=== PATIENT | female | born 1985 | race Caucasian/White ===

== ENCOUNTER 2018-11-13 14:15 | Emergency (ER) | payer SELFPAY ==
[2018-11-13] MEDS ORDERED: Tetracaine HCl/PF 0.5% 4 ML Bottle EYEBOTH STA (14:23)
--- NOTE | 2018-11-13 14:24 | EDM.PDOC ---
ED HPI GENERAL MEDICAL PROBLEM - General Chief Complaint: Eye Problems Stated Complaint: SOMETHING IN EYE Time Seen by Provider: 11/13/18 14:23 Source of Information: Reports: Patient History Limitations: Reports: No Limitations - History of Present Illness INITIAL COMMENTS - FREE TEXT/NARRATIVE: HISTORY AND PHYSICAL: History of present illness: Patient is a 33-year-old female who presents to the emergency room today with complaints of pain and sensation of foreign body in the left eye. She states yesterday she was gardening when she felt something hit her eye. Shortly after she began to have irritation and unable to irrigate the eye herself. She does not wear glasses or corrective lenses. Patient denies any fever, chills, headache, syncope or near syncope. Denies any chest pain, back pain, shortness of breath or cough. Denies any abdominal pain, nausea, vomiting, diarrhea, constipation or dysuria. Has not noted any blood in urine or stool. Patient has been eating and drinking appropriately. Review of systems: As per history of present illness and below otherwise all systems reviewed and negative. Past medical history: As per history of present illness and as reviewed below otherwise noncontributory. Surgical history: As per history of present illness and as reviewed below otherwise noncontributory. Social history: See social history for further information Family history: As per history of present illness and as reviewed below otherwise noncontributory. Physical exam: General: Well developed and well-nourished 33-year-old female. Alert and oriented. Nontoxic appearing and in no acute distress. HEENT: Atraumatic, normocephalic, pupils equal and reactive bilaterally, negative for conjunctival pallor or scleral icterus, mucous membranes moist, TMs normal bilaterally, throat clear, neck supple, nontender, trachea midline. No drooling or trismus noted. No meningeal signs. No hot potato voice noted. Lungs: Clear to auscultation, breath sounds equal bilaterally, chest nontender. Heart: S1S2, regular rate and rhythm without overt murmur Abdomen: Soft, nondistended, nontender. Negative for masses or hepatosplenomegaly. Negative for costovertebral tenderness. Pelvis: Stable nontender. Genitourinary: Deferred. Rectal: Deferred. Skin: Intact, warm, dry. No lesions or rashes noted. Extremities: Atraumatic, moves all extremities per self with difficulty or deficits, negative for cords or calf pain. Neurovascular unremarkable. Neuro: Awake, alert, oriented. Cranial nerves II through XII unremarkable. Cerebellum unremarkable. Motor and sensory unremarkable throughout. Exam nonfocal. Notes: Eye exam was completed. She does have a corneal abrasion noted at the 5 to 6 o' clock position below the iris. No foreign body noted. We'll give her erythromycin ointment. Supportive care measures were reviewed and discussed. Voices understanding and is agreeable to plan of care. Denies any further questions or concerns at this time. Diagnostics: None Therapeutics: Tetracaine Prescription: Erythromycin Ointment Impression: Corneal Abrasion, left Plan: 1. Take the antibiotic ointment as prescribed. 2. Follow-up with ophthalmology as we discussed. Return to the ED as needed and as discussed. Definitive disposition and diagnosis as appropriate pending reevaluation and review of above. Left Eye Pain Score (Numeric/FACES): 6 - Related Data Allergies Allergy/AdvReac Type Severity Reaction Status Date / Time naproxen Allergy Itching Verified 11/13/18 14:43 Home Meds: Home Meds . [No Known Home Meds] 11/24/15 [History] Past Medical History Genitourinary History: Reports: Pyelonephritis, UTI, Recurrent - Infectious Disease History Infectious Disease History: Reports: Chicken Pox - Past Surgical History GI Surgical History: Reports: Appendectomy Musculoskeletal Surgical History: Reports: Other (See Below) Other Musculoskeletal Surgeries/Procedures:: Bilateral Knee scopes Social & Family History - Family History Family Medical History: Noncontributory - Caffeine Use Caffeine Use: Reports: Tea ED ROS GENERAL - Review of Systems Review Of Systems: ROS reveals no pertinent complaints other than HPI. ED EXAM GENERAL W FULL EYE - Physical Exam Exam: See Below (See dictation) Course - Vital Signs Last Recorded V/S: Last Vital Signs Temp 97.4 F 11/13/18 14:43 Pulse 92 11/13/18 14:43 Resp 14 11/13/18 14:43 BP 121/85 11/13/18 14:43 Pulse Ox 96 11/13/18 14:43 - Orders/Labs/Meds Meds: Medications Discontinued Medications Generic Name Dose Route Start Last Admin Trade Name Freq PRN Reason Stop Dose Admin Tetracaine HCl 1 ml 11/13/18 14:23 11/13/18 14:54 Tetracaine 0.5% Steri-Unit Hanny EYEBOTH 11/13/18 14:24 2 drop NOW STA Administration Departure - Departure Time of Disposition: 14:57 Disposition: Home, Self-Care 01 Clinical Impression: Corneal abrasion Qualifiers: Encounter type: initial encounter Laterality: left Qualified Code(s): S05.02XA - Injury of conjunctiva and corneal abrasion without foreign body, left eye, initial encounter - Discharge Information Instructions: Corneal Abrasion, [id number] Referrals: PCP,Unknown [Primary Care Provider] - Forms: ED Department Discharge Additional Instructions: The following information is given to patients seen in the emergency department who are being discharged to home. This information is to outline your options for follow-up care. We provide all patients seen in our emergency department with a follow-up referral. The need for follow-up, as well as the timing and circumstances, are variable depending upon the specifics of your emergency department visit. If you don't have a primary care physician on staff, we will provide you with a referral. We always advise you to contact your personal physician following an emergency department visit to inform them of the circumstance of the visit and for follow-up with them and/or the need for any referrals to a consulting specialist. The emergency department will also refer you to a specialist when appropriate. This referral assures that you have the opportunity for follow-up care with a specialist. All of these measure are taken in an effort to provide you with optimal care, which includes your follow-up. Under all circumstances we always encourage you to contact your private physician who remains a resource for coordinating your care. When calling for follow-up care, please make the office aware that this follow-up is from your recent emergency room visit. If for any reason you are refused follow-up, please contact the [facility] Emergency Department at and asked to speak to the emergency department charge nurse. [facility] [address] [place] [id number] [facility] [address] [place] [id number] 1. Take the antibiotic ointment as prescribed. 2. Follow-up with ophthalmology as we discussed. Return to the ED as needed and as discussed.
[2018-11-13 14:50] VITALS: BP 121/85
== END 2018-11-13 15:03 | disposition home or self-care (01) ==
LOC: MW.ED 14:15
DX: S05.02XA Injury of conjunctiva and corneal abrasion without foreign body, left eye, initial encounter (principal); X58.XXXA Exposure to other specified factors, initial encounter; Z88.8 Allergy status to other drugs, medicaments and biological substances
CPT/HCPCS: 99282; 99283

== ENCOUNTER 2018-11-22 11:46 | Emergency (ER) | payer SELFPAY ==
[2018-11-22] MEDS ORDERED: Sodium Chloride 0.9% 1,000 ML IV ONE (11:52)
[2018-11-22] MEDS ORDERED: Ondansetron 4 MG/2 ML SDV IVPUSH ONE (11:52)
[2018-11-22 12:05] VITALS: BP 150/108
[2018-11-22] MEDS ORDERED: Morphine 2 MG/ML Syringe IVPUSH ONE ×2 (12:06→15:31)
[2018-11-22] MEDS ORDERED: Morphine 2 MG/ML Syringe ONE (12:08)
[2018-11-22 12:47] LABS: CHLORIDE,CL 104 mmol/L (98-107); SODIUM,NA 142 mmol/L (136-145)
[2018-11-22] MEDS ORDERED: Ketorolac 30 MG/ML SDV IVPUSH ONE (13:00)
--- NOTE | 2018-11-22 13:22 | CT ---
INDICATION: Right-sided flank pain. TECHNIQUE: CT abdomen and pelvis without contrast. COMPARISON: None. FINDINGS: Lower chest: Unremarkable. Liver: Normal in size and attenuation. No masses. Gallbladder and bile ducts: No stones or inflammation. No biliary dilatation. Pancreas: Unremarkable. No mass or inflammation. Spleen: Normal in size. No masses. Adrenal glands: Normal in size. No nodules. Kidneys: A 3 mm stone in the proximal right ureter is causing mild hydronephrosis. No other renal stones. GI tract: Unremarkable. Normal in caliber. No sign of mass or inflammation. Vasculature: Unremarkable. Lymph nodes: No lymphadenopathy. Abdominal wall/Omentum/Peritoneum: Unremarkable. No sign of mass or infiltration. No free air or significant free fluid. Pelvis: A complex cystic mass with septations in the right adnexa measures 7 x 5 x 4 cm. Suspected pedunculated fibroid is emanating from the anterior border of the uterus. Remainder of the pelvis is unremarkable. Bones: Unremarkable for age. IMPRESSION: 1. 3 mm stone in the proximal right ureter is causing mild hydronephrosis. 2. Complex cystic mass in the right adnexa measures approximately 7 x 5 x 4 cm. Ultrasound evaluation is recommended to assess for a mural nodule and potential neoplasm. Gynecology consultation is also recommended for management of this finding. 3. Small uterine fibroid is suspected. Please note that all CT scans at this facility use dose modulation, iterative reconstruction, and/or weight-based dosing when appropriate to reduce radiation dose to as low as reasonably achievable. Dictated by Brayan Schmid MD @ Nov 22 2018 1:10PM Signed by Dr. Brayan Schmid @ Nov 22 2018 1:19PM
[2018-11-22] MEDS ORDERED: Tamsulosin 0.4 MG Cap.ER PO ONE (13:23)
[2018-11-22] MEDS ORDERED: methylPREDNISolone Sodium Succinate 125 MG/2 ML SDV IVPUSH ONE (13:23)
--- NOTE | 2018-11-22 15:04 | US ---
INDICATION: Right adnexal cyst seen on CT; further assessment. COMPARISON: CT abdomen and pelvis November 22, 2018. TECHNIQUE: Pelvic ultrasound; transabdominal and transvaginal pelvic ultrasound. FINDINGS: The uterus is measuring 6.3 x 2.6 x 4.1 cm. The endometrial stripe is measuring 9.5 mm in thickness with homogeneous echotexture. The right ovary is measuring 4.8 x 4 x 6.3 cm. The left ovary is measuring 1.4 x 1.2 x 1.3 cm. A 3 x 2.7 cm cyst in the right ovary and a 3.3 x 2.9 cm cyst in the right ovary both adjacent to each other. No mural nodules. No evidence of free fluid in the cul-de-sac. Normal blood flow to the ovaries. A 19 millimeter uterine fibroid. IMPRESSION: 1. Enlarged right ovary with 2 cysts in it; followup is needed. 2. No free fluid in the cul-de-sac. 3. A 19 mm fibroid. Dictated by Clara Balderrama MD @ Nov 22 2018 2:47PM Signed by Dr. Clara Balderrama @ Nov 22 2018 3:01PM
--- NOTE | 2018-11-22 15:36 | EDM.PDOC ---
ED HPI GENERAL MEDICAL PROBLEM - General Chief Complaint: Flank Pain Stated Complaint: KIDNEY STONE Time Seen by Provider: 11/22/18 15:31 Source of Information: Reports: Patient - History of Present Illness INITIAL COMMENTS - FREE TEXT/NARRATIVE: HISTORY AND PHYSICAL: History of present illness: [Patient presents with right-sided abdominal pain she rates a 20 out of 10 with intermittent nausea no vomiting chills sweats no fever She has a history of renal stone she also states she has had a known history of cysts in her right ovary and has been considered for nephrectomy in the past but has not elected to have this performed . No chest pain shortness breath headache dizziness palpitation no bowel or urine symptoms Review of systems: As per history of present illness and below otherwise all systems reviewed and negative. Past medical history: As per history of present illness and as reviewed below otherwise noncontributory. Surgical history: As per history of present illness and as reviewed below otherwise noncontributory. Social history: No reported history of drug or alcohol abuse. Family history: As per history of present illness and as reviewed below otherwise noncontributory. Physical exam: HEENT: Atraumatic, normocephalic, pupils reactive, negative for conjunctival pallor or scleral icterus, mucous membranes moist, throat clear, neck supple, nontender, trachea midline. Lungs: Clear to auscultation, breath sounds equal bilaterally, chest nontender. Heart: S1S2, regular, negative for clicks, rubs, or JVD. Abdomen: Soft, nondistended, nontender. Negative for masses or hepatosplenomegaly. Negative for costovertebral tenderness. Pelvis: Stable nontender. Genitourinary: Deferred. Rectal: Deferred. Extremities: Atraumatic, negative for cords or calf pain. Neurovascular unremarkable. Neuro: Awake, alert, oriented. Cranial nerves II through XII unremarkable. Cerebellum unremarkable. Motor and sensory unremarkable throughout. Exam nonfocal. Diagnostics: [CBC CMP UA hCG CT abdomen pelvis no contrast Pelvic ultrasound limited ] Therapeutics: [ morphine 2 mg IV 2 Toradol 30 mg IV Flomax Zofran [place] Flomax Zofran Follow-up primary care Follow-up gynecology ] Impression: [ 3 millimeter right ureteral stone ] right ovarian cysts -confirmed Definitive disposition and diagnosis as appropriate pending reevaluation and review of above. Right Flank Pain Score (Numeric/FACES): 10 - Related Data Allergies Allergy/AdvReac Type Severity Reaction Status Date / Time naproxen Allergy Itching Verified 11/22/18 11:58 Home Meds: Home Meds . [No Known Home Meds] 11/24/15 [History] Past Medical History - Past Health History Medical/Surgical History: Denies Medical/Surgical History Genitourinary History: Reports: Pyelonephritis, UTI, Recurrent - Infectious Disease History Infectious Disease History: Reports: Chicken Pox - Past Surgical History GI Surgical History: Reports: Appendectomy Musculoskeletal Surgical History: Reports: Other (See Below) Other Musculoskeletal Surgeries/Procedures:: Bilateral Knee scopes Social & Family History - Family History Family Medical History: Noncontributory - Tobacco Use Smoking Status *Q: Never Smoker Second Hand Smoke Exposure: No - Caffeine Use Caffeine Use: Reports: None - Recreational Drug Use Recreational Drug Use: No ED ROS GENERAL - Review of Systems Review Of Systems: See Below ED EXAM, GENERAL - Physical Exam Exam: See Below Course - Vital Signs Last Recorded V/S: Last Vital Signs Temp 96.7 F 11/22/18 12:01 Pulse 87 11/22/18 12:01 Resp 20 11/22/18 12:01 BP 150/108 H 11/22/18 12:01 Pulse Ox 100 11/22/18 12:01 - Orders/Labs/Meds Orders: Active Orders 24 hr Category Date Time Status Morphine Med 11/22/18 15:31 Once 2 mg IVPUSH ONETIME ONE Labs: Laboratory Tests 11/22/18 11/22/18 11/22/18 Range/Units 11:58 11:58 12:55 WBC 20.76 H (4.0-11.0) K/uL RBC 4.69 (4.30-5.90) M/uL Hgb 14.5 (12.0-16.0) g/dL Hct 41.4 (36.0-46.0) % MCV 88.3 (80.0-98.0) fL MCH 30.9 (27.0-32.0) pg MCHC 35.0 (31.0-37.0) g/dL RDW Std Deviation 39.7 (28.0-62.0) fl RDW Coeff of Jamir 12 (11.0-15.0) % Plt Count 382 (150-400) K/uL MPV 8.60 (7.40-12.00) fL Neut % (Auto) 72.9 (48.0-80.0) % Lymph % (Auto) 19.2 (16.0-40.0) % Walker % (Auto) 7.5 (0.0-15.0) % Eos % (Auto) 0.3 (0.0-7.0) % Baso % (Auto) 0.1 (0.0-1.5) % Neut # (Auto) 15.1 H (1.4-5.7) K/uL Lymph # (Auto) 4.0 H (0.6-2.4) K/uL Walker # (Auto) 1.6 H (0.0-0.8) K/uL Eos # (Auto) 0.1 (0.0-0.7) K/uL Baso # (Auto) 0.0 (0.0-0.1) K/uL Nucleated RBC % 0.0 /100WBC Nucleated RBCs # 0 K/uL Sodium 142 (136-145) mmol/L Potassium 3.2 L (3.5-5.1) mmol/L Chloride 104 (98-107) mmol/L Carbon Dioxide 20.1 L (21.0-32.0) mmol/L BUN 13 (7.0-18.0) mg/dL Creatinine 0.9 (0.6-1.0) mg/dL Est Cr Clr Drug Dosing 74.23 mL/min Estimated GFR (MDRD) > 60.0 ml/min Glucose 137 H (74-106) mg/dL Calcium 9.1 (8.5-10.1) mg/dL Total Bilirubin 0.6 (0.2-1.0) mg/dL AST 10 L (15-37) IU/L ALT 22 (14-63) IU/L Alkaline Phosphatase 41 L (46-116) U/L Total Protein 8.0 (6.4-8.2) g/dL Albumin 4.2 (3.4-5.0) g/dL Globulin 3.8 (2.6-4.0) g/dL Albumin/Globulin Ratio 1.1 (0.9-1.6) Urine Color YELLOW Urine Appearance CLEAR Urine pH 6.0 (5.0-8.0) Ur Specific [place] 1.010 (1.001-1.035) Urine Protein NEGATIVE (NEGATIVE) mg/dL Urine Glucose (UA) NEGATIVE (NEGATIVE) mg/dL Urine Ketones 15 H (NEGATIVE) mg/dL Urine Occult Blood LARGE H (NEGATIVE) Urine Nitrite NEGATIVE (NEGATIVE) Urine Bilirubin NEGATIVE (NEGATIVE) Urine Urobilinogen 0.2 (<2.0) EU/dL Ur Leukocyte Esterase NEGATIVE (NEGATIVE) Urine RBC 2-3 (0-2/HPF) Urine WBC 0-1 (0-5/HPF) Ur Epithelial Cells RARE (NONE-FEW) Urine Bacteria RARE (NEGATIVE) Urine HCG, Qual (NEGATIVE) 11/22/18 Range/Units 12:55 WBC (4.0-11.0) K/uL RBC (4.30-5.90) M/uL Hgb (12.0-16.0) g/dL Hct (36.0-46.0) % MCV (80.0-98.0) fL MCH (27.0-32.0) pg MCHC (31.0-37.0) g/dL RDW Std Deviation (28.0-62.0) fl RDW Coeff of Jamir (11.0-15.0) % Plt Count (150-400) K/uL MPV (7.40-12.00) fL Neut % (Auto) (48.0-80.0) % Lymph % (Auto) (16.0-40.0) % Walker % (Auto) (0.0-15.0) % Eos % (Auto) (0.0-7.0) % Baso % (Auto) (0.0-1.5) % Neut # (Auto) (1.4-5.7) K/uL Lymph # (Auto) (0.6-2.4) K/uL Walker # (Auto) (0.0-0.8) K/uL Eos # (Auto) (0.0-0.7) K/uL Baso # (Auto) (0.0-0.1) K/uL Nucleated RBC % /100WBC Nucleated RBCs # K/uL Sodium (136-145) mmol/L Potassium (3.5-5.1) mmol/L Chloride (98-107) mmol/L Carbon Dioxide (21.0-32.0) mmol/L BUN (7.0-18.0) mg/dL Creatinine (0.6-1.0) mg/dL Est Cr Clr Drug Dosing mL/min Estimated GFR (MDRD) ml/min Glucose (74-106) mg/dL Calcium (8.5-10.1) mg/dL Total Bilirubin (0.2-1.0) mg/dL AST (15-37) IU/L ALT (14-63) IU/L Alkaline Phosphatase (46-116) U/L Total Protein (6.4-8.2) g/dL Albumin (3.4-5.0) g/dL Globulin (2.6-4.0) g/dL Albumin/Globulin Ratio (0.9-1.6) Urine Color Urine Appearance Urine pH (5.0-8.0) Ur Specific [place] (1.001-1.035) Urine Protein (NEGATIVE) mg/dL Urine Glucose (UA) (NEGATIVE) mg/dL Urine Ketones (NEGATIVE) mg/dL Urine Occult Blood (NEGATIVE) Urine Nitrite (NEGATIVE) Urine Bilirubin (NEGATIVE) Urine Urobilinogen (<2.0) EU/dL Ur Leukocyte Esterase (NEGATIVE) Urine RBC (0-2/HPF) Urine WBC (0-5/HPF) Ur Epithelial Cells (NONE-FEW) Urine Bacteria (NEGATIVE) Urine HCG, Qual NEGATIVE (NEGATIVE) Meds: Medications Discontinued Medications Generic Name Dose Route Start Last Admin Trade Name Freq PRN Reason Stop Dose Admin Sodium Chloride 1,000 mls @ 999 mls/hr 11/22/18 11:52 11/22/18 12:11 Normal Saline IV 11/22/18 12:52 999 mls/hr STAT ONE Administration Ketorolac Tromethamine 30 mg 11/22/18 13:00 11/22/18 13:04 Toradol IVPUSH 11/22/18 13:01 30 mg ONETIME ONE Administration Methylprednisolone Sodium Succinate 125 mg 11/22/18 13:23 11/22/18 13:41 Solu-Medrol IVPUSH 11/22/18 13:24 125 mg ONETIME ONE Administration Morphine Sulfate 2 mg 11/22/18 12:06 11/22/18 12:13 Morphine IVPUSH 11/22/18 12:07 2 mg ONETIME ONE Administration Morphine Sulfate Confirm 11/22/18 12:08 11/22/18 12:15 Morphine Administered 11/22/18 12:09 Not Given Dose 2 mg .ROUTE .STK-MED ONE Ondansetron HCl 8 mg 11/22/18 11:52 11/22/18 12:11 Zofran IVPUSH 11/22/18 11:53 8 mg ONETIME ONE Administration Tamsulosin HCl 0.4 mg 11/22/18 13:23 11/22/18 13:40 Flomax PO 11/22/18 13:24 0.4 mg ONETIME ONE Administration Departure - Departure Time of Disposition: 15:34 Disposition: Home, Self-Care 01 Condition: Good Clinical Impression: Ureteral stone - Discharge Information Referrals: PCP,Unknown [Primary Care Provider] - Additional Instructions: Medication as prescribed Return if symptoms persist or worsen or if new concerning symptoms develop Strain urine collection stone and return to primary care or urology Follow-up with primary care as needed Follow-up with gynecology concerning right ovary is discussed [facility] [address] [place] [address] [facility] [address] [place] [address] [facility] - [facility]rology [address] [place] [address] The following information is given to patients seen in the emergency department who are being discharged to home. This information is to outline your options for follow-up care. We provide all patients seen in our emergency department with a follow-up referral. The need for follow-up, as well as the timing and circumstances, are variable depending upon the specifics of your emergency department visit. If you don't have a primary care physician on staff, we will provide you with a referral. We always advise you to contact your personal physician following an emergency department visit to inform them of the circumstance of the visit and for follow-up with them and/or the need for any referrals to a consulting specialist. The emergency department will also refer you to a specialist when appropriate. This referral assures that you have the opportunity for follow-up care with a specialist. All of these measure are taken in an effort to provide you with optimal care, which includes your follow-up. Under all circumstances we always encourage you to contact your private physician who remains a resource for coordinating your care. When calling for follow-up care, please make the office aware that this follow-up is from your recent emergency room visit. If for any reason you are refused follow-up, please contact the [facility] emergency department at and asked to speak to the emergency department charge nurse. - My Orders Last 24 Hours: My Active Orders 11/22/18 15:31 Morphine 2 mg IVPUSH ONETIME ONE - Assessment/Plan Last 24 Hours: My Active Orders 11/22/18 15:31 Morphine 2 mg IVPUSH ONETIME ONE
== END 2018-11-22 16:09 | disposition home or self-care (01) ==
LOC: MW.ED 11:46
DX: N13.2 Hydronephrosis with renal and ureteral calculous obstruction (principal); N83.201 Unspecified ovarian cyst, right side; Z88.8 Allergy status to other drugs, medicaments and biological substances
CPT/HCPCS: 36415; 74176; 76857; 80053; 81001; 81025; 85025; 96361; 96374; 96375; 96376; 99284; A9270; J1885; J2270; J2405; J2930; J7040

== ENCOUNTER 2018-12-14 22:21 | Observation (INO) | payer SELFPAY ==
[2018-12-14] MEDS ORDERED: Ondansetron 4 MG/2 ML SDV IVPUSH ONE (22:28)
[2018-12-14] MEDS ORDERED: Ketorolac 30 MG/ML SDV IVPUSH ONE (22:28)
[2018-12-14] MEDS ORDERED: Sodium Chloride 0.9% 1,000 ML IV ONE (22:28)
--- NOTE | 2018-12-14 22:30 | EDM.PDOC ---
ED HPI GENERAL MEDICAL PROBLEM - General Chief Complaint: Genitourinary Problem Stated Complaint: KIDNEY STONE Time Seen by Provider: 12/14/18 22:29 Source of Information: Reports: Patient - History of Present Illness INITIAL COMMENTS - FREE TEXT/NARRATIVE: HISTORY AND PHYSICAL: History of present illness: Patient presents with abdominal pain, she was seen last month with 3 mm ureteral stone similar symptoms today No fever chills sweats Review of systems: As per history of present illness and below otherwise all systems reviewed and negative. Past medical history: As per history of present illness and as reviewed below otherwise noncontributory. Surgical history: As per history of present illness and as reviewed below otherwise noncontributory. Social history: No reported history of drug or alcohol abuse. Family history: As per history of present illness and as reviewed below otherwise noncontributory. Physical exam: HEENT: Atraumatic, normocephalic, pupils reactive, negative for conjunctival pallor or scleral icterus, mucous membranes moist, throat clear, neck supple, nontender, trachea midline. Lungs: Clear to auscultation, breath sounds equal bilaterally, chest nontender. Heart: S1S2, regular, negative for clicks, rubs, or JVD. Abdomen: Soft, nondistended, nontender. Negative for masses or hepatosplenomegaly. Negative for costovertebral tenderness. Pelvis: Stable nontender. Genitourinary: Deferred. Rectal: Deferred. Extremities: Atraumatic, negative for cords or calf pain. Neurovascular unremarkable. Neuro: Awake, alert, oriented. Cranial nerves II through XII unremarkable. Cerebellum unremarkable. Motor and sensory unremarkable throughout. Exam nonfocal. Diagnostics: [CBC CMP UA hCG ] Therapeutics: [ normal saline Toradol 30 mg IV Zofran 8 mg IV ]Flomax 0.8 mg by mouth Solu-Medrol 125 mg IV Impression: 5-6 mm stone left distal ureter definitive disposition and diagnosis as appropriate pending reevaluation and review of above. Right Flank Pain Score (Numeric/FACES): 10 - Related Data Allergies Allergy/AdvReac Type Severity Reaction Status Date / Time naproxen Allergy Itching Verified 12/14/18 22:31 Home Meds: Home Meds . [No Known Home Meds] 11/24/15 [History] Past Medical History - Past Health History Medical/Surgical History: Denies Medical/Surgical History Genitourinary History: Reports: Pyelonephritis, UTI, Recurrent - Infectious Disease History Infectious Disease History: Reports: Chicken Pox - Past Surgical History GI Surgical History: Reports: Appendectomy Musculoskeletal Surgical History: Reports: Other (See Below) Other Musculoskeletal Surgeries/Procedures:: Bilateral Knee scopes Social & Family History - Family History Family Medical History: Noncontributory - Caffeine Use Caffeine Use: Reports: Tea ED ROS GENERAL - Review of Systems Review Of Systems: See Below ED EXAM, GENERAL - Physical Exam Exam: See Below Course - Vital Signs Last Recorded V/S: Last Vital Signs Temp 97 F 12/15/18 05:00 Pulse 65 12/15/18 05:00 Resp 18 12/15/18 05:00 BP 160/93 H 12/15/18 05:00 Pulse Ox 95 12/15/18 05:00 - Orders/Labs/Meds Labs: Laboratory Tests 12/14/18 12/14/18 12/14/18 Range/Units 22:35 22:35 23:15 WBC 22.87 H (4.0-11.0) K/uL RBC 4.59 (4.30-5.90) M/uL Hgb 14.3 (12.0-16.0) g/dL Hct 40.8 (36.0-46.0) % MCV 88.9 (80.0-98.0) fL MCH 31.2 (27.0-32.0) pg MCHC 35.0 (31.0-37.0) g/dL RDW Std Deviation 39.4 (28.0-62.0) fl RDW Coeff of Jamir 12 (11.0-15.0) % Plt Count 347 (150-400) K/uL MPV 8.70 (7.40-12.00) fL Neut % (Auto) 77.2 (48.0-80.0) % Lymph % (Auto) 11.4 L (16.0-40.0) % [place] % (Auto) 11.1 (0.0-15.0) % Eos % (Auto) 0.1 (0.0-7.0) % Baso % (Auto) 0.2 (0.0-1.5) % Neut # (Auto) 17.7 H (1.4-5.7) K/uL Lymph # (Auto) 2.6 H (0.6-2.4) K/uL [place] # (Auto) 2.5 H (0.0-0.8) K/uL Eos # (Auto) 0.0 (0.0-0.7) K/uL Baso # (Auto) 0.0 (0.0-0.1) K/uL Nucleated RBC % 0.0 /100WBC Nucleated RBCs # 0 K/uL Sodium 137 (136-145) mmol/L Potassium 3.2 L (3.5-5.1) mmol/L Chloride 100 (98-107) mmol/L Carbon Dioxide 18.0 L (21.0-32.0) mmol/L BUN 18 (7.0-18.0) mg/dL Creatinine 1.0 (0.6-1.0) mg/dL Est Cr Clr Drug Dosing 66.81 mL/min Estimated GFR (MDRD) > 60.0 ml/min Glucose 127 H (74-106) mg/dL Calcium 9.8 (8.5-10.1) mg/dL Total Bilirubin 0.5 (0.2-1.0) mg/dL AST 16 (15-37) IU/L ALT 17 (14-63) IU/L Alkaline Phosphatase 41 L (46-116) U/L Total Protein 8.1 (6.4-8.2) g/dL Albumin 4.5 (3.4-5.0) g/dL Globulin 3.6 (2.6-4.0) g/dL Albumin/Globulin Ratio 1.2 (0.9-1.6) Urine Color YELLOW Urine Appearance HAZY Urine pH 5.5 (5.0-8.0) Ur Specific [place] 1.010 (1.001-1.035) Urine Protein NEGATIVE (NEGATIVE) mg/dL Urine Glucose (UA) NEGATIVE (NEGATIVE) mg/dL Urine Ketones 15 H (NEGATIVE) mg/dL Urine Occult Blood LARGE H (NEGATIVE) Urine Nitrite NEGATIVE (NEGATIVE) Urine Bilirubin NEGATIVE (NEGATIVE) Urine Urobilinogen 0.2 (<2.0) EU/dL Ur Leukocyte Esterase NEGATIVE (NEGATIVE) Urine RBC 2-4 (0-2/HPF) Urine WBC 0-2 (0-5/HPF) Ur Epithelial Cells FEW (NONE-FEW) Urine Bacteria FEW (NEGATIVE) Urine HCG, Qual (NEGATIVE) 12/14/18 Range/Units 23:15 WBC (4.0-11.0) K/uL RBC (4.30-5.90) M/uL Hgb (12.0-16.0) g/dL Hct (36.0-46.0) % MCV (80.0-98.0) fL MCH (27.0-32.0) pg MCHC (31.0-37.0) g/dL RDW Std Deviation (28.0-62.0) fl RDW Coeff of Jamir (11.0-15.0) % Plt Count (150-400) K/uL MPV (7.40-12.00) fL Neut % (Auto) (48.0-80.0) % Lymph % (Auto) (16.0-40.0) % [place] % (Auto) (0.0-15.0) % Eos % (Auto) (0.0-7.0) % Baso % (Auto) (0.0-1.5) % Neut # (Auto) (1.4-5.7) K/uL Lymph # (Auto) (0.6-2.4) K/uL [place] # (Auto) (0.0-0.8) K/uL Eos # (Auto) (0.0-0.7) K/uL Baso # (Auto) (0.0-0.1) K/uL Nucleated RBC % /100WBC Nucleated RBCs # K/uL Sodium (136-145) mmol/L Potassium (3.5-5.1) mmol/L Chloride (98-107) mmol/L Carbon Dioxide (21.0-32.0) mmol/L BUN (7.0-18.0) mg/dL Creatinine (0.6-1.0) mg/dL Est Cr Clr Drug Dosing mL/min Estimated GFR (MDRD) ml/min Glucose (74-106) mg/dL Calcium (8.5-10.1) mg/dL Total Bilirubin (0.2-1.0) mg/dL AST (15-37) IU/L ALT (14-63) IU/L Alkaline Phosphatase (46-116) U/L Total Protein (6.4-8.2) g/dL Albumin (3.4-5.0) g/dL Globulin (2.6-4.0) g/dL Albumin/Globulin Ratio (0.9-1.6) Urine Color Urine Appearance Urine pH (5.0-8.0) Ur Specific [place] (1.001-1.035) Urine Protein (NEGATIVE) mg/dL Urine Glucose (UA) (NEGATIVE) mg/dL Urine Ketones (NEGATIVE) mg/dL Urine Occult Blood (NEGATIVE) Urine Nitrite (NEGATIVE) Urine Bilirubin (NEGATIVE) Urine Urobilinogen (<2.0) EU/dL Ur Leukocyte Esterase (NEGATIVE) Urine RBC (0-2/HPF) Urine WBC (0-5/HPF) Ur Epithelial Cells (NONE-FEW) Urine Bacteria (NEGATIVE) Urine HCG, Qual NEGATIVE (NEGATIVE) Meds: Medications Discontinued Medications Generic Name Dose Route Start Last Admin Trade Name Freq PRN Reason Stop Dose Admin Hydromorphone HCl 1 mg 12/15/18 01:32 12/15/18 01:44 Dilaudid IVPUSH 12/15/18 01:33 1 mg ONETIME ONE Administration Hydromorphone HCl 1 mg 12/15/18 03:07 12/15/18 03:36 Dilaudid IVPUSH 12/15/18 03:08 Not Given ONETIME ONE Hydromorphone HCl 1 mg 12/15/18 03:29 12/15/18 03:33 Dilaudid IVPUSH 12/15/18 03:30 1 mg ONETIME ONE Administration Sodium Chloride 1,000 mls @ 999 mls/hr 12/14/18 22:28 12/14/18 22:40 Normal Saline IV 12/14/18 23:28 999 mls/hr STAT ONE Administration Sodium Chloride 1,000 mls @ 999 mls/hr 12/15/18 02:00 12/15/18 02:13 Normal Saline IV 12/15/18 03:00 999 mls/hr .Bolus ONE Administration Ketorolac Tromethamine 30 mg 12/14/18 22:28 12/14/18 22:45 Toradol IVPUSH 12/14/18 22:29 30 mg ONETIME ONE Administration Ketorolac Tromethamine Confirm 12/14/18 22:44 12/14/18 22:51 Toradol Administered 12/14/18 22:45 Not Given Dose 30 mg .ROUTE .STK-MED ONE Methylprednisolone Sodium Succinate 125 mg 12/15/18 01:57 12/15/18 02:17 Solu-Medrol IVPUSH 12/15/18 01:58 125 mg ONETIME ONE Administration Morphine Sulfate 4 mg 12/14/18 23:55 12/15/18 00:07 Morphine IVPUSH 12/14/18 23:56 4 mg ONETIME ONE Administration Ondansetron HCl 8 mg 12/14/18 22:28 12/14/18 22:45 Zofran IVPUSH 12/14/18 22:29 8 mg ONETIME ONE Administration Ondansetron HCl Confirm 12/14/18 22:44 12/14/18 22:51 Zofran Administered 12/14/18 22:45 Not Given Dose 4 mg .ROUTE .STK-MED ONE Ondansetron HCl 4 mg 12/15/18 03:19 12/15/18 03:25 Zofran IVPUSH 12/15/18 03:20 4 mg ONETIME ONE Administration Tamsulosin HCl 0.8 mg 12/15/18 01:57 12/15/18 02:16 Flomax PO 12/15/18 01:58 0.8 mg NOW STA Administration Departure - Departure Time of Disposition: 05:43 Disposition: Refer to Observation Condition: Fair Clinical Impression: Ureteral stone - Discharge Information Referrals: PCP,None [Primary Care Provider] - Forms: ED Department Discharge
[2018-12-14] MEDS ORDERED: Ketorolac 30 MG/ML SDV ONE (22:44)
[2018-12-14] MEDS ORDERED: Ondansetron 4 MG/2 ML SDV ONE (22:44)
[2018-12-14 23:00] LABS: CHLORIDE,CL 100 mmol/L (98-107); SODIUM,NA 137 mmol/L (136-145)
[2018-12-14] MEDS ORDERED: Morphine 4 MG/ML Syringe IVPUSH ONE (23:55)
[2018-12-15] MEDS ORDERED: HYDROmorphone 1 MG/ML Syringe IVPUSH ONE ×3 (01:32→06:06)
--- NOTE | 2018-12-15 01:40 | CT ---
INDICATION: abdominal pain TECHNIQUE: A CT volumetric acquisition was performed of the abdomen and pelvis without intravenous contrast. Please note that all CT scans at this facility use dose modulation, iterative reconstruction, and/or weight-based dosing when appropriate to reduce radiation dose to as low as reasonably achievable. COMPARISON: 11.22.18 FINDINGS: The CT images demonstrate normal aeration of the lung bases. There is no evidence of pleural or pericardial fluid. Within the abdomen the liver appears normal in size and density. The spleen is of normal size. There is no evidence of mass effect or inflammation within the pancreas. The gallbladder and bile ducts appear normal. The adrenal glands have normal morphology. The left kidney is normal size. Interval migration of 5-6 millimeter stone into the distal ureter just above the ureterovesical junction with persistent hydroureteronephrosis and perinephric stranding. No evidence of appendicitis. The small and large bowel loops appear normal and there are no abnormalities noted within the small bowel mesentery or greater omentum. The aorta and IVC appear normal. There is no evidence of retroperitoneal lymphadenopathy. Stable right ovarian cysts. There is no evidence of a ventral abdominal wall hernia. IMPRESSION: Interval migration of 5-6 millimeter stone into the distal right ureter with persistent hydronephrosis. Right ovarian cysts are unchanged. Stable 2 centimeter exophytic uterine leiomyoma. Please note that all CT scans at this facility use dose modulation, iterative reconstruction, and/or weight-based dosing when appropriate to reduce radiation dose to as low as reasonably achievable. Dictated by Anthony Whitney MD @ Dec 15 2018 1:31AM Signed by Dr. Anthony Whitney @ Dec 15 2018 1:38AM
[2018-12-15] MEDS ORDERED: Tamsulosin 0.4 MG Cap.ER PO STA (01:57)
[2018-12-15] MEDS ORDERED: methylPREDNISolone Sodium Succinate 125 MG/2 ML SDV IVPUSH ONE (01:57)
[2018-12-15] MEDS ORDERED: Sodium Chloride 0.9% 1,000 ML IV ONE (02:00)
[2018-12-15] MEDS ORDERED: HYDROmorphone 2 MG/ML SDV IVPUSH ONE (03:07)
[2018-12-15] MEDS ORDERED: Ondansetron 4 MG/2 ML SDV IVPUSH ONE (03:19)
[2018-12-15] MEDS ORDERED: HYDROmorphone 2 MG/ML SDV IVPUSH PRN (05:52)
[2018-12-15] MEDS ORDERED: HYDROmorphone 1 MG/ML Syringe ONE (06:07)
[2018-12-15] MEDS ORDERED: Sodium Chloride 0.9% 1,000 ML IV SCH ×2 (06:15→07:00)
[2018-12-15] MEDS ORDERED: HYDROmorphone 2 MG/ML Syringe IVPUSH PRN (06:47)
[2018-12-15] MEDS: Ondansetron 4 MG/2 ML SDV IVPUSH PRN ×2 (06:58→13:24)
[2018-12-15] MEDS: Morphine PF 30 MG/30 ML PCA Vial IV SCH ×2 (08:46→14:26)
[2018-12-15] MEDS ORDERED: Sodium Chloride 0.9% 2.5 ML Syringe FLUSH PRN (11:28)
[2018-12-15] MEDS ORDERED: Sodium Chloride 0.9% 10 ML SDV IV PRN (11:28)
[2018-12-15] MEDS ORDERED: Sodium Chloride 0.9% 10 ML Syringe FLUSH PRN (11:28)
[2018-12-15] MEDS ORDERED: Lactated Ringers 1,000 ML IV SCH (11:30)
--- NOTE | 2018-12-15 11:31 | PCM.PREANE ---
Preanesthetic Assessment - Anesthesia/Transfusion/Family Hx Anesthesia History: Prior Anesthesia Reaction Other Type of Anesthesia Reaction Comment: pateint states she is always 'slow to come out of it' after surgery Transfusion History: No Prior Transfusion(s) - Review of Systems General: No Symptoms Pulmonary: No Symptoms Cardiovascular: No Symptoms Gastrointestinal: No Symptoms Neurological: No Symptoms Other: Reports: None - Physical Assessment NPO Status Date: 12/14/18 NPO Status Time: 22:00 Pulse: 79 O2 Sat by Pulse Oximetry: 96 Respiratory Rate: 20 Blood Pressure: 142/89 Vital Signs: Last Vital Signs Temp 97.5 F 12/15/18 07:35 Pulse 79 12/15/18 07:35 Resp 19 12/15/18 07:35 BP 142/89 H 12/15/18 07:35 Pulse Ox 79 L 12/15/18 07:35 Height: 5 ft 3 in Weight: 70.225 kg ASA Class: 2E Mental Status: Alert & Oriented x3 Airway Class: Mallampati = 2 Dentition: Reports: Normal Dentition Thyro-Mental Finger Breadths: 3 Mouth Opening Finger Breadths: 3 ROM/Head Extension: Full Lungs: Clear to Auscultation, Normal Respiratory Effort Cardiovascular: Regular Rate, Regular Rhythm - Lab Values: Laboratory Last Values WBC 22.87 K/uL (4.0-11.0) H 12/14/18 22:35 RBC 4.59 M/uL (4.30-5.90) 12/14/18 22:35 Hgb 14.3 g/dL (12.0-16.0) 12/14/18 22:35 Hct 40.8 % (36.0-46.0) 12/14/18 22:35 MCV 88.9 fL (80.0-98.0) 12/14/18 22:35 MCH 31.2 pg (27.0-32.0) 12/14/18 22:35 MCHC 35.0 g/dL (31.0-37.0) 12/14/18 22:35 RDW Std Deviation 39.4 fl (28.0-62.0) 12/14/18 22:35 RDW Coeff of Jamir 12 % (11.0-15.0) 12/14/18 22:35 Plt Count 347 K/uL (150-400) 12/14/18 22:35 MPV 8.70 fL (7.40-12.00) 12/14/18 22:35 Neut % (Auto) 77.2 % (48.0-80.0) 12/14/18 22:35 Lymph % (Auto) 11.4 % (16.0-40.0) L 12/14/18 22:35 [place] % (Auto) 11.1 % (0.0-15.0) 12/14/18 22:35 Eos % (Auto) 0.1 % (0.0-7.0) 12/14/18 22:35 Baso % (Auto) 0.2 % (0.0-1.5) 12/14/18 22:35 Neut # (Auto) 17.7 K/uL (1.4-5.7) H 12/14/18 22:35 Lymph # (Auto) 2.6 K/uL (0.6-2.4) H 12/14/18 22:35 [place] # (Auto) 2.5 K/uL (0.0-0.8) H 12/14/18 22:35 Eos # (Auto) 0.0 K/uL (0.0-0.7) 12/14/18 22:35 Baso # (Auto) 0.0 K/uL (0.0-0.1) 12/14/18 22:35 Nucleated RBC % 0.0 /100WBC 12/14/18 22:35 Nucleated RBCs # 0 K/uL 12/14/18 22:35 Sodium 137 mmol/L (136-145) 12/14/18 22:35 Potassium 3.2 mmol/L (3.5-5.1) L 12/14/18 22:35 Chloride 100 mmol/L (98-107) 12/14/18 22:35 Carbon Dioxide 18.0 mmol/L (21.0-32.0) L 12/14/18 22:35 BUN 18 mg/dL (7.0-18.0) 12/14/18 22:35 Creatinine 1.0 mg/dL (0.6-1.0) 12/14/18 22:35 Est Cr Clr Drug Dosing 66.81 mL/min 12/14/18 22:35 Estimated GFR (MDRD) > 60.0 ml/min 05/04/19 22:35 Glucose 127 mg/dL (74-106) H 12/14/18 22:35 Calcium 9.8 mg/dL (8.5-10.1) 12/14/18 22:35 Total Bilirubin 0.5 mg/dL (0.2-1.0) 12/14/18 22:35 AST 16 IU/L (15-37) 12/14/18 22:35 ALT 17 IU/L (14-63) 12/14/18 22:35 Alkaline Phosphatase 41 U/L (46-116) L 12/14/18 22:35 Total Protein 8.1 g/dL (6.4-8.2) 12/14/18 22:35 Albumin 4.5 g/dL (3.4-5.0) 12/14/18 22:35 Globulin 3.6 g/dL (2.6-4.0) 12/14/18 22:35 Albumin/Globulin Ratio 1.2 (0.9-1.6) 12/14/18 22:35 Urine Color YELLOW 12/14/18 23:15 Urine Appearance HAZY 12/14/18 23:15 Urine pH 5.5 (5.0-8.0) 12/14/18 23:15 Ur Specific [place] 1.010 (1.001-1.035) 12/14/18 23:15 Urine Protein NEGATIVE mg/dL (NEGATIVE) 12/14/18 23:15 Urine Glucose (UA) NEGATIVE mg/dL (NEGATIVE) 12/14/18 23:15 Urine Ketones 15 mg/dL (NEGATIVE) H 12/14/18 23:15 Urine Occult Blood LARGE (NEGATIVE) H 12/14/18 23:15 Urine Nitrite NEGATIVE (NEGATIVE) 12/14/18 23:15 Urine Bilirubin NEGATIVE (NEGATIVE) 12/14/18 23:15 Urine Urobilinogen 0.2 EU/dL (<2.0) 12/14/18 23:15 Ur Leukocyte Esterase NEGATIVE (NEGATIVE) 12/14/18 23:15 Urine RBC 2-4 (0-2/HPF) 12/14/18 23:15 Urine WBC 0-2 (0-5/HPF) 12/14/18 23:15 Ur Epithelial Cells FEW (NONE-FEW) 12/14/18 23:15 Urine Bacteria FEW (NEGATIVE) 12/14/18 23:15 Urine HCG, Qual NEGATIVE (NEGATIVE) 12/14/18 23:15 - Allergies Allergies/Adverse Reactions: Allergies Allergy/AdvReac Type Severity Reaction Status Date / Time naproxen Allergy Itching Verified 12/14/18 22:31 - Acknowledgements Anesthesia Type Planned: General Anesthesia Pt an Appropriate Candidate for the Planned Anesthesia: Yes Alternatives and Risks of Anesthesia Discussed w Pt/Guardian: Yes Pt/Guardian Understands and Agrees with Anesthesia Plan: Yes PreAnesthesia Questionnaire - Past Health History Medical/Surgical History: Denies Medical/Surgical History HEENT History: Reports: None Cardiovascular History: Reports: None Respiratory History: Reports: None Gastrointestinal History: Reports: None Genitourinary History: Reports: Pyelonephritis, UTI, Recurrent [employer] History: Reports: None Musculoskeletal History: Reports: None Neurological History: Reports: None Psychiatric History: Reports: Anxiety Endocrine/Metabolic History: Reports: None Hematologic History: Reports: None Immunologic History: Reports: None Oncologic (Cancer) History: Reports: None Dermatologic History: Reports: None - Infectious Disease History Infectious Disease History: Reports: Chicken Pox - Past Surgical History GI Surgical History: Reports: Appendectomy Musculoskeletal Surgical History: Reports: Other (See Below) Other Musculoskeletal Surgeries/Procedures:: Bilateral Knee scopes - SUBSTANCE USE Smoking Status *Q: Former Smoker Tobacco Use Within Last Twelve Months: No Second Hand Smoke Exposure: No Recreational Drug Use History: No - HOME MEDS Home Medications: Home Meds . [No Known Home Meds] 11/24/15 [History] - CURRENT (IN HOUSE) MEDS Current Meds: Current Medications Sodium Chloride (Normal Saline) 1,000 mls @ 125 mls/hr IV ASDIRECTED KASHIF Morphine Sulfate (Morphine Station Worker 30 Mg In 30 Ml) 0 mg IV ASDIRECTED KASHIF; Protocol Last Admin: 12/15/18 08:46 Dose: 30 mg Ondansetron HCl (Zofran) 8 mg IVPUSH Q6H PRN PRN Reason: Nausea/Vomiting Last Admin: 12/15/18 06:58 Dose: 8 mg Discontinued Medications Hydromorphone HCl (Dilaudid) 1 mg IVPUSH ONETIME ONE Stop: 12/15/18 01:33 Last Admin: 12/15/18 01:44 Dose: 1 mg Hydromorphone HCl (Dilaudid) 1 mg IVPUSH ONETIME ONE Stop: 12/15/18 03:08 Last Admin: 12/15/18 03:36 Dose: Not Given Hydromorphone HCl (Dilaudid) 1 mg IVPUSH ONETIME ONE Stop: 12/15/18 03:30 Last Admin: 12/15/18 03:33 Dose: 1 mg Hydromorphone HCl (Dilaudid) 0.5 mg IVPUSH ONETIME PRN PRN Reason: Abdominal Pain Hydromorphone HCl (Dilaudid) 0.5 mg IVPUSH ONETIME ONE Stop: 12/15/18 06:07 Last Admin: 12/15/18 06:13 Dose: 0.5 mg Hydromorphone HCl (Dilaudid) Confirm Administered Dose 1 mg .ROUTE .STK-MED ONE Stop: 12/15/18 06:08 Last Admin: 12/15/18 06:11 Dose: Not Given Hydromorphone HCl (Dilaudid) 1 mg IVPUSH Q2H PRN PRN Reason: Pain Last Admin: 12/15/18 07:05 Dose: 1 mg Sodium Chloride (Normal Saline) 1,000 mls @ 999 mls/hr IV STAT ONE Stop: 12/14/18 23:28 Last Admin: 12/14/18 22:40 Dose: 999 mls/hr Sodium Chloride (Normal Saline) 1,000 mls @ 999 mls/hr IV .Bolus ONE Stop: 12/15/18 03:00 Last Admin: 12/15/18 02:13 Dose: 999 mls/hr Sodium Chloride (Normal Saline) 1,000 mls @ 125 mls/hr IV STAT KASHIF Last Admin: 12/15/18 06:12 Dose: 125 mls/hr Ketorolac Tromethamine (Toradol) 30 mg IVPUSH ONETIME ONE Stop: 12/14/18 22:29 Last Admin: 12/14/18 22:45 Dose: 30 mg Ketorolac Tromethamine (Toradol) Confirm Administered Dose 30 mg .ROUTE .STK- MED ONE Stop: 12/14/18 22:45 Last Admin: 12/14/18 22:51 Dose: Not Given Methylprednisolone Sodium Succinate (Solu-Medrol) 125 mg IVPUSH ONETIME ONE Stop: 12/15/18 01:58 Last Admin: 12/15/18 02:17 Dose: 125 mg Morphine Sulfate (Morphine) 4 mg IVPUSH ONETIME ONE Stop: 12/14/18 23:56 Last Admin: 12/15/18 00:07 Dose: 4 mg Ondansetron HCl (Zofran) 8 mg IVPUSH ONETIME ONE Stop: 12/14/18 22:29 Last Admin: 12/14/18 22:45 Dose: 8 mg Ondansetron HCl (Zofran) Confirm Administered Dose 4 mg .ROUTE .STK-MED ONE Stop: 12/14/18 22:45 Last Admin: 12/14/18 22:51 Dose: Not Given Ondansetron HCl (Zofran) 4 mg IVPUSH ONETIME ONE Stop: 12/15/18 03:20 Last Admin: 12/15/18 03:25 Dose: 4 mg Tamsulosin HCl (Flomax) 0.8 mg PO NOW STA Stop: 12/15/18 01:58 Last Admin: 12/15/18 02:16 Dose: 0.8 mg
[2018-12-15] MEDS ORDERED: Ondansetron 4 MG/2 ML SDV ONE (13:18)
[2018-12-15] MEDS ORDERED: Lidocaine 2% 5 ML SDV ONE (13:18)
[2018-12-15] MEDS ORDERED: fentaNYL 250 MCG/5 ML SDV ONE (13:19)
[2018-12-15] MEDS ORDERED: Midazolam 1 MG/ML 2 ML SDV ONE (13:19)
[2018-12-15] MEDS ORDERED: Propofol 200 MG/20 ML SDV ONE (13:19)
[2018-12-15] MEDS ORDERED: Iopamidol 200-M 10 ML vial ITHECAL ONE (14:44)
[2018-12-15] MEDS ORDERED: Naloxone 0.4 MG/ML Syringe IVPUSH PRN (15:28)
[2018-12-15] MEDS ORDERED: Atropine 0.1 MG/ML 10 ML Syringe IVPUSH PRN ×2 (15:28)
[2018-12-15] MEDS ORDERED: Albuterol 0.083% 2.5 MG/3 ML Neb Soln NEB PRN (15:28)
[2018-12-15] MEDS ORDERED: fentaNYL 100 MCG/2 ML SDV IVPUSH PRN (15:28)
[2018-12-15] MEDS ORDERED: EPINEPHrine 1:10,000 1 MG/10 ML Syringe IVPUSH PRN (15:28)
[2018-12-15] MEDS ORDERED: 50% Dextrose in Water 50 ML Syringe IVPUSH PRN (15:28)
[2018-12-15] MEDS ORDERED: Sodium Chloride 0.9% 20 ML ONE (15:30)
[2018-12-15] MEDS ORDERED: ceFAZolin 1 GM Vial ONE (15:30)
--- NOTE | 2018-12-15 16:20 | PCM.POSTAN ---
POST ANESTHESIA ASSESSMENT - MENTAL STATUS Mental Status: Alert, Oriented - VITAL SIGNS Pulse Rate: 106 SaO2: 97 Resp Rate: 12 Blood Pressure: 131/89 - RESPIRATORY Respiratory Status: Respiratory Rate WNL, Airway Patent, O2 Saturation Stable - CARDIOVASCULAR CV Status: Pulse Rate WNL, Blood Pressure Stable - GASTROINTESTINAL GI Status: No Symptoms - PAIN Pain Score: 1 - POST OP HYDRATION Hydration Status: Adequate & Stable
--- NOTE | 2018-12-15 16:21 | OR ---
SURGEON: Viktoria Shahid M.D. DATE OF PROCEDURE: 12/15/2018 PREOPERATIVE DIAGNOSIS: Right lower ureteral stone. POSTOPERATIVE DIAGNOSIS: Right lower ureteral stone. OPERATION: Right ureteroscopy with stone removal. DESCRIPTION OF PROCEDURE: The patient was given general anesthesia. She was placed in the dorsal lithotomy position, prepped and draped in sterile drapes. A guidewire was advanced in the right ureter alongside the stone all the way up into the renal pelvis. The lower ureter was then dilated using the UroMax II balloon dilator to approximately 15-Vincentian. The rigid ureteroscope was advanced in the right lower ureter. The stone was grasped and removed. With that done, the procedure was terminated. The patient was moved to recovery room in good condition. DARYL / CHICO /[id number]
[2018-12-15] MEDS ORDERED: Morphine 2 MG/ML Syringe IVPUSH ONE (17:12)
[2018-12-15 18:38] VITALS: BP 136/86
--- NOTE | 2018-12-15 21:12 | CONS ---
DATE OF CONSULTATION: 12/15/2018 DATE OF : 1985 PRIMARY CARE PHYSICIAN: None PCP HISTORY OF PRESENT ILLNESS: A 33-year-old. She was seen in the emergency room with sudden onset of right flank pain, right lumbar region and right lower quadrant pain. She was seen on November 22 for a similar concern and had a CT scan that showed a 5 mm right upper ureteral stone. After a week or so, the pain disappeared and came back earlier today. She was under the impression that she passed the first stone; however, there were no other stones on the CT scan that was done in November besides the one that was in the right upper ureter, and there were no other stones currently, so it is the same stone that was in the right upper ureter that is now in the right lower ureter. Her UA is negative and not suggestive of UTI. Her white blood count however was 22,000. The CT scan showed significant perinephric stranding. She is afebrile and her vital signs are stable. PHYSICAL EXAMINATION: GENERAL APPEARANCE: Normal. She is alert and oriented. VITAL SIGNS: Normal. HEART: Normal sinus rhythm. LUNGS: Clear. ABDOMEN: Right lower quadrant tenderness. DIAGNOSTIC DATA: CT scan showed ovarian cyst on the right. She is aware of that. IMPRESSION: Right ureteral stone, 5 mm. PLAN: Right ureteroscopy and stone removal. DARYL GOLDEN /[id number]
--- NOTE | 2018-12-16 13:11 | CR ---
EXAMINATION: Abdomen HISTORY: Surgical procedure COMPARISON: CT dated 12/15/2018 TECHNIQUE: 2 fluoroscopic images provided FINDINGS/IMPRESSION: Operative control films demonstrate selection of the right ureter with balloon insufflation near the right ureterovesicular junction.
== END 2018-12-15 18:30 | disposition home or self-care (01) ==
LOC: MW.ED 22:21 → MW.MS 12-15 05:44
PROVIDERS: ADMIT Urology; ATTEND Urology
DX: N20.1 Calculus of ureter (principal); Z88.6 Allergy status to analgesic agent; Z87.891 Personal history of nicotine dependence
CPT/HCPCS: 36415; 52352; 74176; 76000; 80053; 81001; 81025; 85025; 96361; 96374; 96375; 96376; 99285; A9270; C1769; J0690; J1170; J1885; J2001; J2250; J2270; J2274; J2405; J2704; J2930; J3010; J7040; J7120; Q9966; 00918; 88300; G0378

== ENCOUNTER 2018-12-17 11:33 | Emergency (ER) | payer SELFPAY ==
--- NOTE | 2018-12-17 11:38 | EDM.PDOC ---
ED HPI GENERAL MEDICAL PROBLEM - General Chief Complaint: Flank Pain Stated Complaint: KIDNEY STONE Time Seen by Provider: 12/17/18 11:35 Source of Information: Reports: Patient History Limitations: Reports: No Limitations - History of Present Illness INITIAL COMMENTS - FREE TEXT/NARRATIVE: HISTORY AND PHYSICAL: History of present illness: Patient is a 33-year-old female who presents to the emergency room today with complaints of right upper abdominal pain and bladder pain. Patient had a 6 mm stone removed from the right distal ureter by Dr. Shahid yesterday on 12/16/18. She states she was discharged to home, and has been using Tylenol and ibuprofen routinely without any pain relief. Patient denies any fever, chills, headache, change in vision, syncope or near syncope. Denies any chest pain, back pain, shortness of breath or cough. Denies any diarrhea, constipation or dysuria. Has not noted any blood in urine or stool. Patient has been eating and drinking appropriately. Review of systems: As per history of present illness and below otherwise all systems reviewed and negative. Past medical history: As per history of present illness and as reviewed below otherwise noncontributory. Surgical history: As per history of present illness and as reviewed below otherwise noncontributory. Social history: See social history for further information Family history: As per history of present illness and as reviewed below otherwise noncontributory. Physical exam: General: Well developed and well-nourished 33-year-old female. Alert and oriented. Nontoxic appearing and in no acute distress. HEENT: Atraumatic, normocephalic, pupils equal and reactive bilaterally, negative for conjunctival pallor or scleral icterus, mucous membranes moist, TMs normal bilaterally, throat clear, neck supple, nontender, trachea midline. No drooling or trismus noted. No meningeal signs. No hot potato voice noted. Lungs: Clear to auscultation, breath sounds equal bilaterally, chest nontender. Heart: S1S2, regular rate and rhythm without overt murmur Abdomen: Soft, nondistended, nontender. Negative for masses or hepatosplenomegaly. Negative for costovertebral tenderness. Pelvis: Stable nontender. Genitourinary: Deferred. Rectal: Deferred. Skin: Intact, warm, dry. No lesions or rashes noted. Extremities: Atraumatic, moves all extremities per self without difficulty or deficits, negative for cords or calf pain. Neurovascular unremarkable. Neuro: Awake, alert, oriented. Cranial nerves II through XII unremarkable. Cerebellum unremarkable. Motor and sensory unremarkable throughout. Exam nonfocal. Notes: CT on 12/15/2018: Interval migration of 5-6 mm stone into the right distal ureter with persistent hydronephrosis. Right ovarian cyst, unchanged. Lab work is unremarkable. Consulted Dr Shahid, who performed the surgery yesterday, he reviewed the labs that were done today. We'll discharge patient with tramadol. Supportive care measures were reviewed and discussed. Voices understanding and is agreeable to plan of care. Denies any further questions or concerns at this time. Diagnostics: CBC, CMP, UA, Lipase Therapeutics: IV fluids, Hyosine, Zofran, Tramadol Prescription: Tramadol (#15) Impression: Abdominal pain History of kidney stone Plan: 1. Increase your oral fluids; rest the remained of the day. 2. Tramadol as directed. This medication may cause drowsiness a do not take it' ll driving her needing to be functioning outside of the house. 3. Follow-up with your primary care provider as we discussed. Return to the ED as needed and as discussed. Definitive disposition and diagnosis as appropriate pending reevaluation and review of above. R FLank, Abdomen, Bladder Pain Score (Numeric/FACES): 8 - Related Data Allergies Allergy/AdvReac Type Severity Reaction Status Date / Time naproxen Allergy Itching Verified 12/17/18 11:40 Home Meds: Home Meds . 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 Musculoskeletal History: Reports: None Neurological History: Reports: None Psychiatric History: Reports: Anxiety Endocrine/Metabolic History: Reports: None Hematologic History: Reports: None Immunologic History: Reports: None Oncologic (Cancer) History: Reports: None Dermatologic History: Reports: None - Infectious Disease History Infectious Disease History: Reports: Chicken Pox - Past Surgical History GI Surgical History: Reports: Appendectomy Musculoskeletal Surgical History: Reports: Other (See Below) Other Musculoskeletal Surgeries/Procedures:: Bilateral Knee scopes Social & Family History - Family History Family Medical History: Noncontributory - Caffeine Use Caffeine Use: Reports: None ED ROS GENERAL - Review of Systems Review Of Systems: ROS reveals no pertinent complaints other than HPI. ED EXAM, RENAL/ - Physical Exam Exam: See Below (See dictation) Course - Vital Signs Last Recorded V/S: Last Vital Signs Temp 98.2 F 12/17/18 11:38 Pulse 93 12/17/18 11:38 Resp 22 H 12/17/18 11:38 BP 150/97 H 12/17/18 11:38 Pulse Ox 98 12/17/18 11:38 - Orders/Labs/Meds Orders: Active Orders 24 hr Category Date Time Status traMADol [Ultram] Med 12/17/18 13:25 Once 50 mg PO ONETIME ONE Labs: Laboratory Tests 12/17/18 12/17/18 12/17/18 Range/Units 11:50 11:50 12:55 WBC 11.31 H (4.0-11.0) K/uL RBC 4.35 (4.30-5.90) M/uL Hgb 13.5 (12.0-16.0) g/dL Hct 39.5 (36.0-46.0) % MCV 90.8 (80.0-98.0) fL MCH 31.0 (27.0-32.0) pg MCHC 34.2 (31.0-37.0) g/dL RDW Std Deviation 41.7 (28.0-62.0) fl RDW Coeff of Jamir 13 (11.0-15.0) % Plt Count 301 (150-400) K/uL MPV 8.80 (7.40-12.00) fL Neut % (Auto) 63.7 (48.0-80.0) % Lymph % (Auto) 26.6 (16.0-40.0) % [place] % (Auto) 8.7 (0.0-15.0) % Eos % (Auto) 0.7 (0.0-7.0) % Baso % (Auto) 0.3 (0.0-1.5) % Neut # (Auto) 7.2 H (1.4-5.7) K/uL Lymph # (Auto) 3.0 H (0.6-2.4) K/uL [place] # (Auto) 1.0 H (0.0-0.8) K/uL Eos # (Auto) 0.1 (0.0-0.7) K/uL Baso # (Auto) 0.0 (0.0-0.1) K/uL Nucleated RBC % 0.0 /100WBC Nucleated RBCs # 0 K/uL Sodium 140 (136-145) mmol/L Potassium 3.6 (3.5-5.1) mmol/L Chloride 104 (98-107) mmol/L Carbon Dioxide 24.0 (21.0-32.0) mmol/L BUN 12 (7.0-18.0) mg/dL Creatinine 0.9 (0.6-1.0) mg/dL Est Cr Clr Drug Dosing 74.23 mL/min Estimated GFR (MDRD) > 60.0 ml/min Glucose 107 H (74-106) mg/dL Calcium 9.2 (8.5-10.1) mg/dL Total Bilirubin 0.6 (0.2-1.0) mg/dL AST 6 L (15-37) IU/L ALT 13 L (14-63) IU/L Alkaline Phosphatase 33 L (46-116) U/L Total Protein 7.2 (6.4-8.2) g/dL Albumin 3.9 (3.4-5.0) g/dL Globulin 3.3 (2.6-4.0) g/dL Albumin/Globulin Ratio 1.2 (0.9-1.6) Lipase 118 (73-393) U/L Urine Color YELLOW Urine Appearance CLEAR Urine pH 8.0 (5.0-8.0) Ur Specific [place] 1.025 (1.001-1.035) Urine Protein 30 H (NEGATIVE) mg/dL Urine Glucose (UA) NEGATIVE (NEGATIVE) mg/dL Urine Ketones >=80 (NEGATIVE) mg/dL Urine Occult Blood SMALL H (NEGATIVE) Urine Nitrite NEGATIVE (NEGATIVE) Urine Bilirubin NEGATIVE (NEGATIVE) Urine Urobilinogen 0.2 (<2.0) EU/dL Ur Leukocyte Esterase NEGATIVE (NEGATIVE) Urine RBC 4-8 (0-2/HPF) Urine WBC 1-3 (0-5/HPF) Ur Epithelial Cells FEW (NONE-FEW) Urine Bacteria FEW (NEGATIVE) Urine Mucus MODERATE (NONE-MOD) Meds: Medications Discontinued Medications Generic Name Dose Route Start Last Admin Trade Name Tyrell PRN Reason Stop Dose Admin Hyoscyamine 0.125 mg 12/17/18 11:57 12/17/18 12:06 Hyomax-Sl SL 12/17/18 11:58 0.125 mg ONETIME ONE Administration Sodium Chloride 1,000 mls @ 999 mls/hr 12/17/18 11:42 12/17/18 11:55 Normal Saline IV 12/17/18 12:42 999 mls/hr STAT ONE Administration Ketorolac Tromethamine 30 mg 12/17/18 11:57 12/17/18 12:05 Toradol IVPUSH 12/17/18 11:58 30 mg ONETIME ONE Administration Ondansetron HCl 4 mg 12/17/18 11:42 12/17/18 11:59 Zofran IVPUSH 12/17/18 11:43 4 mg ONETIME ONE Administration Departure - Departure Time of Disposition: 13:24 Disposition: Home, Self-Care 01 Clinical Impression: History of kidney stones Abdominal pain Qualifiers: Abdominal location: generalized Qualified Code(s): R10.84 - Generalized abdominal pain - Discharge Information Instructions: Abdominal Pain, Adult, [id number] Referrals: PCP,Unknown [Primary Care Provider] - Forms: ED Department Discharge Additional Instructions: The following information is given to patients seen in the emergency department who are being discharged to home. This information is to outline your options for follow-up care. We provide all patients seen in our emergency department with a follow-up referral. The need for follow-up, as well as the timing and circumstances, are variable depending upon the specifics of your emergency department visit. If you don't have a primary care physician on staff, we will provide you with a referral. We always advise you to contact your personal physician following an emergency department visit to inform them of the circumstance of the visit and for follow-up with them and/or the need for any referrals to a consulting specialist. The emergency department will also refer you to a specialist when appropriate. This referral assures that you have the opportunity for follow-up care with a specialist. All of these measure are taken in an effort to provide you with optimal care, which includes your follow-up. Under all circumstances we always encourage you to contact your private physician who remains a resource for coordinating your care. When calling for follow-up care, please make the office aware that this follow-up is from your recent emergency room visit. If for any reason you are refused follow-up, please contact the [facility] Emergency Department at and asked to speak to the emergency department charge nurse. [facility] [address] [place] [address] [facility] [address] [place] [id number] [facility] Specialty [facility] - Urology [address] [place] [address] 1. Increase your oral fluids; rest the remained of the day. 2. Tramadol as directed. This medication may cause drowsiness a do not take it' ll driving her needing to be functioning outside of the house. 3. Follow-up with your primary care provider as we discussed. Return to the ED as needed and as discussed. - My Orders Last 24 Hours: My Active Orders 12/17/18 13:25 traMADol [Ultram] 50 mg PO ONETIME ONE - Assessment/Plan Last 24 Hours: My Active Orders 12/17/18 13:25 traMADol [Ultram] 50 mg PO ONETIME ONE
[2018-12-17] MEDS ORDERED: Sodium Chloride 0.9% 1,000 ML IV ONE (11:42)
[2018-12-17] MEDS ORDERED: Ondansetron 4 MG/2 ML SDV IVPUSH ONE (11:42)
[2018-12-17] MEDS ORDERED: Hyoscyamine 0.125 MG/ML Bottle PO STA (11:43)
[2018-12-17] MEDS ORDERED: Ketorolac 30 MG/ML SDV IVPUSH ONE (11:57)
[2018-12-17] MEDS ORDERED: Hyoscyamine 0.125 MG Tab.SL SL ONE (11:57)
[2018-12-17 12:33] LABS: CHLORIDE,CL 104 mmol/L (98-107); SODIUM,NA 140 mmol/L (136-145)
[2018-12-17] MEDS ORDERED: traMADol 50 MG Tab PO ONE (13:25)
[2018-12-17 13:38] VITALS: BP 141/87
== END 2018-12-17 13:39 | disposition home or self-care (01) ==
LOC: MW.ED 11:33
DX: R10.84 Generalized abdominal pain (principal); R10.11 Right upper quadrant pain; Z88.8 Allergy status to other drugs, medicaments and biological substances; Z87.442 Personal history of urinary calculi
CPT/HCPCS: 36415; 80053; 81001; 83690; 85025; 96361; 96374; 96375; 99284; A9270; J1885; J2405; J7040

== ENCOUNTER 2019-09-29 13:11 | Emergency (ER) | payer SELFPAY ==
[2019-09-29 14:48] VITALS: BP 147/95; PULSE 92
--- NOTE | 2019-09-29 15:31 | EDM.PDOC ---
ED HPI GENERAL MEDICAL PROBLEM - General Chief Complaint: ENT Problem Stated Complaint: CLOGGED EAR/HEADACHE Time Seen by Provider: 09/29/19 15:26 Source of Information: Reports: Patient History Limitations: Reports: No Limitations - History of Present Illness INITIAL COMMENTS - FREE TEXT/NARRATIVE: HISTORY AND PHYSICAL: History of present illness: Patient is a 34-year-old female presents to the ED with complaint of left ear pain. Patient states she has had ear pain and nasal congestion x 3 days. She denies fevers, chills, nausea, vomiting, abdominal pain, cough, chest pain, shortness of breath. She is using drops in her ears without relief of symptoms. Review of systems: As per history of present illness and below otherwise all systems reviewed and negative. Past medical history: As per history of present illness and as reviewed below otherwise noncontributory. Surgical history: As per history of present illness and as reviewed below otherwise noncontributory. Social history: No reported history of drug or alcohol abuse. Family history: As per history of present illness and as reviewed below otherwise noncontributory. Physical exam: General: Patient sitting comfortably in no acute distress and nontoxic appearing HEENT: Left TM is erythematous and bulging with loss of light reflex and bony landmarks. Atraumatic, normocephalic, pupils reactive, negative for conjunctival pallor or scleral icterus, mucous membranes moist, throat clear, neck supple, nontender, trachea midline. No meningeal signs. Lungs: Clear to auscultation, breath sounds equal bilaterally, chest nontender. Heart: S1S2, regular, negative for clicks, rubs, or overt murmur. Abdomen: Soft, nondistended, nontender. Negative for masses or hepatosplenomegaly. Negative for costovertebral tenderness. No rigidity, rebound , guarding. Pelvis: Stable nontender. Genitourinary: Deferred. Rectal: Deferred. Extremities: Atraumatic, negative for cords or calf pain. Neurovascular unremarkable. Neuro: Awake, alert, oriented. Cranial nerves II through XII unremarkable. Cerebellum unremarkable. Motor and sensory unremarkable throughout. Exam nonfocal. Notes: Diagnostics: none Therapeutics none Prescriptions: Augmentin Impression: Left otitis media Plan: Take antibiotic as instructed Alternated tylenol and motrin as needed Follow up with primary care provider Return to ED as needed as discussed Definitive disposition and diagnosis as appropriate pending reevaluation and review of above. left ear Pain Score (Numeric/FACES): 5 - Related Data Allergies Allergy/AdvReac Type Severity Reaction Status Date / Time codeine Allergy Agitation Verified 09/29/19 14:48 naproxen Allergy Itching Verified 09/29/19 14:48 Home Meds: Home Meds Amoxicillin/Potassium Clav [Augmentin 875-125 Tablet] 1 each PO BID 7 Days #14 tablet 09/29/19 [Rx] Past Medical History - Past Health History Medical/Surgical History: Denies Medical/Surgical History HEENT History: Reports: None Cardiovascular History: Reports: None Respiratory History: Reports: None Gastrointestinal History: Reports: None Genitourinary History: Reports: Pyelonephritis, UTI, Recurrent 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 Musculoskeletal History: Reports: None Neurological History: Reports: None Psychiatric History: Reports: Anxiety Endocrine/Metabolic History: Reports: None Hematologic History: Reports: None Immunologic History: Reports: None Oncologic (Cancer) History: Reports: None Dermatologic History: Reports: None - Infectious Disease History Infectious Disease History: Reports: Chicken Pox - Past Surgical History GI Surgical History: Reports: Appendectomy Musculoskeletal Surgical History: Reports: Other (See Below) Other Musculoskeletal Surgeries/Procedures:: Bilateral Knee scopes Social & Family History - Family History Family Medical History: Noncontributory - Tobacco Use Smoking Status *Q: Never Smoker - Caffeine Use Caffeine Use: Reports: None - Recreational Drug Use Recreational Drug Use: No ED ROS ENT - Review of Systems Review Of Systems: Comprehensive ROS is negative, except as noted in HPI. ED EXAM, ENT - Physical Exam Exam: See Below (see dictation) Course - Vital Signs Last Recorded V/S: Last Vital Signs Temp 99.4 F 09/29/19 14:46 Pulse 92 09/29/19 14:46 Resp 18 09/29/19 14:46 BP 147/95 H 09/29/19 14:46 Pulse Ox 100 09/29/19 14:46 Departure - Departure Time of Disposition: 15:37 Disposition: Home, Self-Care 01 Condition: Good Clinical Impression: Left otitis media - Discharge Information Prescriptions: Amoxicillin/Potassium Clav [Augmentin 875-125 Tablet] 1 each PO BID 7 Days #14 tablet Instructions: Otitis Media, Adult, [id number] Referrals: PCP,None [Primary Care Provider] - Forms: ED Department Discharge Additional Instructions: The following information is given to patients seen in the emergency department who are being discharged to home. This information is to outline your options for follow-up care. We provide all patients seen in our emergency department with a follow-up referral. The need for follow-up, as well as the timing and circumstances, are variable depending upon the specifics of your emergency department visit. If you don't have a primary care physician on staff, we will provide you with a referral. We always advise you to contact your personal physician following an emergency department visit to inform them of the circumstance of the visit and for follow-up with them and/or the need for any referrals to a consulting specialist. The emergency department will also refer you to a specialist when appropriate. This referral assures that you have the opportunity for follow-up care with a specialist. All of these measure are taken in an effort to provide you with optimal care, which includes your follow-up. Under all circumstances we always encourage you to contact your private physician who remains a resource for coordinating your care. When calling for follow-up care, please make the office aware that this follow-up is from your recent emergency room visit. If for any reason you are refused follow-up, please contact the [facility] Emergency Department at and asked to speak to the emergency department charge nurse. [facility] [address] [place] [id number] [place] [address] Take antibiotic as instructed Alternated tylenol and motrin as needed Follow up with primary care provider Return to ED as needed as discussed Sepsis Event Note - Evaluation Sepsis Screening Result: No Definite Risk - Focused Exam Vital Signs: Vital Signs Temp Pulse Resp BP Pulse Ox 09/29/19 14:46 99.4 F 92 18 147/95 H 100 Date Exam was Performed: 09/29/19 Time Exam was Performed: 22:09
== END 2019-09-29 15:49 | disposition home or self-care (01) ==
LOC: MW.ED 13:11
DX: H66.92 Otitis media, unspecified, left ear (principal)
CPT/HCPCS: 99282

== ENCOUNTER 2021-07-13 15:00 | Emergency (ER) | payer SELFPAY ==
--- NOTE | 2021-07-13 15:04 | EDM.PDOC ---
ED HPI GENERAL MEDICAL PROBLEM - General Chief Complaint: Respiratory Problem Stated Complaint: SHORTNESS OF BREATH Time Seen by Provider: 07/13/21 15:02 Source of Information: Reports: Patient History Limitations: Reports: No Limitations - History of Present Illness INITIAL COMMENTS - FREE TEXT/NARRATIVE: HISTORY AND PHYSICAL: History of present illness: Patient is a 36-year-old female who presents to the emergency room with complaints of cough and shortness of breath x 5 days. Patient states she wants to make sure she is not "contagious" and would like to be swabbed for COVID-19. She has had some mild nausea and body aches as well. Patient denies any fever, chills, headache, change in vision, syncope or near syncope. Denies any chest pain, back pain, abdominal pain, vomiting, diarrhea, constipation or dysuria. Has not noted any blood in urine or stool. Patient has been eating and drinking appropriately. No recent travel or sick contacts. Review of systems: As per history of present illness and below otherwise all systems reviewed and negative. Past medical history: As per history of present illness and as reviewed below otherwise noncontributory. Surgical history: As per history of present illness and as reviewed below otherwise noncontributory. Social history: See social history for further information Family history: As per history of present illness and as reviewed below otherwise noncontributory. Physical exam: General: Well developed and well nourished 36-year-old female. Alert and orientated x 3. Nontoxic in appearance and in no acute distress. Vital signs are stable and have been reviewed by me. Nursing notes were reviewed. HEENT: Atraumatic, normocephalic, pupils equal and reactive bilaterally, negative for conjunctival pallor or scleral icterus, mucous membranes moist, TMs normal bilaterally, throat clear, neck supple, nontender, trachea midline. No drooling or trismus noted. No meningeal signs. No hot potato voice noted. Lungs: Slightly diminished bases to auscultation bilaterally. No wheezes, rales, or rhonchi. Chest nontender. Normal work of breathing, no accessory muscles used. Dry nonproductive cough is noted. Heart: S1S2, regular rate and rhythm without overt murmur, gallops, or rubs. No JVD. No peripheral edema Abdomen: Soft, nondistended, nontender. Normoactive bowel sounds. Negative for masses or costovertebral tenderness. Skin: Intact, warm, dry. No lesions or rashes noted. Hematologic: No petechiae or purpra. Mucosa appropriate color and normal nail bed color and refill. Extremities: Atraumatic, moves all extremities per self without difficulty or deficits, negative for cords or calf pain. Neurovascular unremarkable. Neuro: Awake, alert, oriented. Cranial nerves II through XII unremarkable. Ce rebellum unremarkable. Motor and sensory unremarkable throughout. Exam nonfocal. Psychiatric: Mood and affect are appropriate. Normal thought process. Answering questions appropriately. Please note that the patient was seen and evaluated during the 2019 SARS-CoV-2 novel coronavirus pandemic period. Community viral transmission is ongoing at time of this encounter and the emergency department is operating under pandemic response procedures. Medical Decision Making: COVID and influenza screening are negative. Chest x-ray shows no acute findings. Due to length of symptoms we will treat with a Z-Raffy and prednisone. She states she does feel increased nausea, will give her 1 tablet of Zofran prior to discharge I have talked with the patient about today's findings, in addition to providing specific details for plan of care. Reassessment at the time of disposition demonstrates that the patient is in no acute distress. The patient is stable for discharge, counseling was provided and we discussed in great detail signs and symptoms that would prompt them to return to the Emergency Department. Medication, follow up and supportive care measures were reviewed and discussed. Voices understanding and is agreeable to plan of care. Denies any further questions or concerns at this time. Diagnostics: COVID-19/influenza Therapeutics: Zofran Prescription: Z-Raffy, prednisone Impression: Bronchitis Plan: 1. You were evaluated today on an emergent basis. Your COVID and influenza are negative. Will treat your bronchitis with Zpak and steroids. 2. You can alternate Tylenol and ibuprofen as needed for pain and fever management. 3. We encourage you to follow up with your primary care provider and/or recommended specialist in the next few days for re-evaluation and further care/management. 4. If your symptoms should worsen, new symptoms develop or any of the signs and symptoms we discussed should arise please return to the emergency room or call 911 (if needed). Definitive disposition and diagnosis as appropriate pending reevaluation and review of above. - Related Data Allergies Allergy/AdvReac Type Severity Reaction Status Date / Time codeine Allergy Agitation Verified 07/13/21 15:06 naproxen Allergy Itching Verified 07/13/21 15:06 Home Meds: Home Meds Azithromycin [Zithromax] 1 dose PO DAILY 5 Days #6 tab 07/13/21 [Rx] predniSONE [Prednisone] 40 mg PO DAILY 4 Days #8 tablet 07/13/21 [Rx] Past Medical History - Past Health History Medical/Surgical History: Denies Medical/Surgical History HEENT History: Reports: None Cardiovascular History: Reports: None Respiratory History: Reports: None Gastrointestinal History: Reports: None Genitourinary History: Reports: Pyelonephritis, UTI, Recurrent [employer] History: Reports: None Musculoskeletal History: Reports: None Neurological History: Reports: None Psychiatric History: Reports: Anxiety Endocrine/Metabolic History: Reports: None Hematologic History: Reports: None Immunologic History: Reports: None Oncologic (Cancer) History: Reports: None Dermatologic History: Reports: None - Infectious Disease History Infectious Disease History: Reports: Chicken Pox - Past Surgical History GI Surgical History: Reports: Appendectomy Musculoskeletal Surgical History: Reports: Other (See Below) Other Musculoskeletal Surgeries/Procedures:: Bilateral Knee scopes Social & Family History - Family History Family Medical History: No Pertinent Family History - Caffeine Use Caffeine Use: Reports: None ED ROS GENERAL - Review of Systems Review Of Systems: Comprehensive ROS is negative, except as noted in HPI. ED EXAM, GENERAL - Physical Exam Exam: See Below (See dictation) Course - Vital Signs Last Recorded V/S: Last Vital Signs Temp 96.3 F L 07/13/21 15:07 Pulse 91 07/13/21 17:21 Resp 16 07/13/21 17:21 BP 122/78 07/13/21 17:21 Pulse Ox 99 07/13/21 17:21 - Orders/Labs/Meds Labs: Laboratory Tests 07/13/21 Range/Units 15:04 Influenza Type A RNA NEGATIVE (NEGATIVE) Influenza Type B RNA NEGATIVE (NEGATIVE) SARS-CoV-2 RNA (GARCIA) NEGATIVE (NEGATIVE) Meds: Medications Discontinued Medications Generic Name Dose Route Start Last Admin Trade Name Freq PRN Reason Stop Dose Admin Ondansetron HCl 4 mg 07/13/21 16:38 07/13/21 16:56 Ondansetron 4 Mg Tab.Dis PO 12/01/21 16:39 4 mg ONETIME ONE Administration Departure - Departure Time of Disposition: 16:35 Disposition: Home, Self-Care 01 Clinical Impression: Bronchitis - Discharge Information Prescriptions: predniSONE [Prednisone] 40 mg PO DAILY 4 Days #8 tablet Azithromycin [Zithromax] 1 dose PO DAILY 5 Days #6 tab Instructions: Acute Bronchitis, Adult, [id number] Referrals: PCP,None [Primary Care Provider] - Forms: ED Department Discharge Additional Instructions: The following information is given to patients seen in the emergency department who are being discharged to home. This information is to outline your options for follow-up care. We provide all patients seen in our emergency department with a follow-up referral. The need for follow-up, as well as the timing and circumstances, are variable depending upon the specifics of your emergency department visit. If you don't have a primary care physician on staff, we will provide you with a referral. We always advise you to contact your personal physician following an emergency department visit to inform them of the circumstance of the visit and for follow-up with them and/or the need for any referrals to a consulting specialist. The emergency department will also refer you to a specialist when appropriate. This referral assures that you have the opportunity for follow-up care with a specialist. All of these measure are taken in an effort to provide you with optimal care, which includes your follow-up. Under all circumstances we always encourage you to contact your private physician who remains a resource for coordinating your care. When calling for follow-up care, please make the office aware that this follow-up is from your recent emergency room visit. If for any reason you are refused follow-up, please contact the [facility] at and asked to speak to the emergency department charge nurse. [facility] [address] [place] [id number] [address] Thank you for choosing the [facility] emergency department in [place] for your medical needs today. It was a pleasure caring for you. Today you were seen in the emergency department for cough Your prescription was electronically sent to: [facility] 1. You were evaluated today on an emergent basis. Your COVID and influenza are negative. Will treat your bronchitis with Zpak and steroids. 2. You can alternate Tylenol and ibuprofen as needed for pain and fever management. 3. We encourage you to follow up with your primary care provider and/or recommended specialist in the next few days for re-evaluation and further care/management. 4. If your symptoms should worsen, new symptoms develop or any of the signs and symptoms we discussed should arise please return to the emergency room or call 911 (if needed). Sepsis Event Note (ED) - Focused Exam Vital Signs: Vital Signs Temp Pulse Resp BP Pulse Ox 07/13/21 17:21 91 16 122/78 99 07/13/21 16:56 102 H 14 135/96 H 98 07/13/21 15:07 96.3 F L 97 20 123/95 H 96
--- NOTE | 2021-07-13 16:18 | CR ---
INDICATION: Cough and shortness of breath. TECHNIQUE: Chest 1 view. COMPARISON: None. FINDINGS: Cardiovascular and mediastinum: Heart size and vasculature are normal in caliber and appearance. Lungs and pleural spaces: Lungs are clear. No sign of infiltrate or mass. No sign of pleural effusion. No pneumothorax. Bones and soft tissues: No significant findings. IMPRESSION: No acute or significant findings. Dictated by Brayan Schmid MD @ 07/13/2021 4:17:02 PM (Electronically Signed)
[2021-07-13 16:24] LABS: CORONAVIRUS COVID-19 NAA NEGATIVE (NEGATIVE); INFLUENZA A NAA NEGATIVE (NEGATIVE); INFLUENZA B NAA NEGATIVE (NEGATIVE)
[2021-07-13] MEDS ORDERED: Ondansetron 4 MG Tab.DIS PO ONE (16:38)
[2021-07-13 17:21] VITALS: BP 122/78; PULSE 91
== END 2021-07-13 17:23 | disposition home or self-care (01) ==
LOC: MW.ED 15:00
DX: J40 Bronchitis, not specified as acute or chronic (principal); Z88.5 Allergy status to narcotic agent; Z88.6 Allergy status to analgesic agent; Z20.822 Contact with and (suspected) exposure to COVID-19
CPT/HCPCS: 0240U; 71045; 99283; A9270

== ENCOUNTER 2021-10-21 10:29 | Emergency (ER) | payer BC ==
[2021-10-21 12:23] VITALS: BP 133/83; PULSE 85
== END 2021-10-21 12:24 | disposition home or self-care (01) ==
LOC: MW.ED 10:29
DX: S90.121A Contusion of right lesser toe(s) without damage to nail, initial encounter (principal); Z88.8 Allergy status to other drugs, medicaments and biological substances; W20.8XXA Other cause of strike by thrown, projected or falling object, initial encounter
CPT/HCPCS: 73620-26-RT; 73620-RT; 99282; 99283-25